=== PATIENT | male | born 1940 | race Caucasian/White ===

== ENCOUNTER 2018-01-06 11:24 | Day surgery (SDC) | payer OTHER ==
[~2018-01-06] VITALS: Ht 193 cm; Wt 104.3 kg
[~2018-01-06 11:24] MED LIST: ACID REDUCER150 MG PO; BAYER CHEWABLE81 MG PO; BUSPAR10 MG PO; HYDROCHLOROTHIA25 MG PO; HYTRIN2 MG PO; K-DUR10 MEQ PO; LIDOCAINE PAIN1 EACH TP; PLAVIX75 MG PO; PROVENTIL,2.5 MG/3 M IH; SPIRIVA18 MCG IH; SYMBICORT60 INHALAT IH; ULTRAM50 MG PO; VASOTEC5 MG PO; VENTOLIN HFA18 GM IH; VITAMIN D31000 UNIT PO; ZOCOR80 MG PO
[2018-01-06 12:17] VITALS: BP 117/71
[2018-01-06 15:38] VITALS: BP 100/59
[2018-01-06 16:10] VITALS: BP 118/69
== END 2018-01-06 16:21 | disposition home or self-care (01) ==
LOC: SDC 11:24
PROC: 08B43ZZ Excision of Right Vitreous, Percutaneous Approach (ICD-10-PCS; principal; 2018-01-06)
DX: H43.01 Vitreous prolapse, right eye (principal); Z98.41 Cataract extraction status, right eye; Z96.1 Presence of intraocular lens; J44.9 Chronic obstructive pulmonary disease, unspecified; I10 Essential (primary) hypertension; E78.5 Hyperlipidemia, unspecified; I25.2 Old myocardial infarction; Z79.02 Long term (current) use of antithrombotics/antiplatelets; Z86.73 Personal history of transient ischemic attack (TIA), and cerebral infarction without residual deficits; Z87.891 Personal history of nicotine dependence; Z79.1 Long term (current) use of non-steroidal anti-inflammatories (NSAID)
CPT/HCPCS: J0690; J2250; J3300; V2632